=== PATIENT | female | born 1935 | race Hispanic/Latino ===

== ENCOUNTER 2018-06-13 11:28 | Emergency (ER) | payer MEDICARE ==
[2018-06-13] MEDS ORDERED: DEXAMETHASONE SOD PHOSPHATE 10MG/ML 1ML VIAL ONE (11:46)
== END 2018-06-13 13:16 | disposition home or self-care (01) ==
LOC: EDH 11:28
DX: J20.9 Acute bronchitis, unspecified (principal); I10 Essential (primary) hypertension; E11.9 Type 2 diabetes mellitus without complications; E78.5 Hyperlipidemia, unspecified; I25.810 Atherosclerosis of coronary artery bypass graft(s) without angina pectoris; Z90.49 Acquired absence of other specified parts of digestive tract
CPT/HCPCS: 71046; 94640; 96372; 99283; J1100